=== PATIENT | female | born 1990 | race Caucasian/White ===

== ENCOUNTER 2017-01-18 18:23 | Emergency (ER) | payer OTHER ==
[~2017-01-18] VITALS: Ht 177.8 cm; Wt 104.3 kg
[~2017-01-18 18:23] MED LIST: FLAGYL500 MG PO; PHENERGAN 12.12.5 M1 PO; TESSALON PERLE100 MG PO; VIBRAMYCIN 100100 MG PO; VOLTAREN75 MG PO; ZANTAC 150150 MG PO
--- OUTSIDE RECORDS SUMMARY | 2017-01-18 18:29 | External Medical Summary Rpt ---
Author Author JOSE Michael, [employer] Organization [employer] Address Unknown Phone Unavailable
--- OUTSIDE RECORDS SUMMARY | 2017-01-18 18:29 | External Medical Summary Rpt | CCD ---
Demographics Preferred Language Azeri Marital Status Unknown Adventism Affiliation Unknown Race Unknown Ethnic Group Unknown Author Author JOSE Address Unknown Phone Immunization No patient found.
--- OUTSIDE RECORDS SUMMARY | 2017-01-18 18:29 | External Medical Summary Rpt | CCD ---
Author Author , JOSE GARCIA Address Unknown Phone [email or web address] Purpose Continuity of Care Document - 06-27-2016 through 2016 Problems Code Diagnosis DOS Provider Status N62 Hypertrophy of breast Results Labs Lab Lab Date Result Refere Interp Status Commen Order Detail nces retati t Range on CBC (hemogram) Bld Auto (06-27-2016 09:24) Platele 10-2 324 150-450 complet t # Bld 017 10*3/mm ed Auto 09:24 3 PMV Bld 05-10-2 9.8 fL 6.0-12. complet Auto 017 0 ed 09:24 RDW RBC 05-10-2 45.2 fl 37.0-54 complet Auto 017 .0 ed 09:24 RDW RBC 05-10-2 14.3 % 11.3-14 complet 017 .5 ed Auto-Rt 09:24 o MCHC -10-2 32.3 32.0-36 complet RBC 017 g/dL .0 ed Auto-mC 09:24 nc MCV RBC -10-2 86.1 fL 80.0-99 complet Auto 017 .0 ed 09:24 Hct VFr -10-2 40.9 % 34.5-44 complet Bld 017 .0 ed Auto 09:24 Hgb 05-10-2 13.2 11.5-15 complet Bld-mCn 017 g/dL .5 ed c 09:24 RBC # 05-10-2 4.75 3.89-5. complet Bld 017 10*6/mm 14 ed Auto 09:24 3 WBC 05-10-2 8.73 3.50-10 complet nRBC 017 10*3/mm .80 ed cor # 09:24 3 Bld MCH RBC 05-10-2 27.8 pg 27.0-31 complet Qn 017 .0 ed Auto 09:24
--- OUTSIDE RECORDS SUMMARY | 2017-01-18 18:29 | External Medical Summary Rpt | CCD ---
Author Author [employer] Organization [employer] Address Unknown Phone Unavailable Purpose Continuity of Care Document - through 2016
--- OUTSIDE RECORDS SUMMARY | 2017-01-18 18:29 | External Medical Summary Rpt | CCD ---
Demographics Preferred Language Bulgarian Marital Status Unknown Voodoo Affiliation Unknown Race Unknown Ethnic Group Unknown Author Author JOSE Address Unknown Phone Immunization No patient found.
--- OUTSIDE RECORDS SUMMARY | 2017-01-18 18:29 | External Medical Summary Rpt | CCD ---
Author Author , JOSE GARCIA Address Unknown Phone [email or web address] Purpose Continuity of Care Document - 06-27-2016 [...]
--- NOTE | 2017-01-18 19:22 | Urgent Treatment Center Report ---
History of Present Issue Date/Time Seen by Provider 01/18/17 1905 Visit Reason Pt arrived:Walked Presenting Problem:SORE THROAT, COUGH, CONGESTION X3 DAYS Location if Accident: Onset of symptoms date/time:/ or onset unknown for:MEDICAL HX UNKNOWN Have you (or family members/close friends) recently traveled outside the [place]? N If Yes, where/when: Have you had exposure to infectious disease within the past month? TB? Other? 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 at the high [employer] states that she has been exposed to Strep throat State that she feels like she is swallowing sharp objects as it makes her throat feel scratchy States that she came in this evening to get checked to make sure she didn't have strep throat ALLERGIES Coded Allergies: tramadol (From [employer]) (01/18/17) Home Medications Active Scripts Promethazine Hydrochloride (Phenergan 12.5MG Tab) 12.5 MG PO Q6H PRN #10 Prov: 05/03/07 BENZONATATE (Benzonatate) 100 MG PO TID 3 Days Prov: 01/01/08 Doxycycline Hyclate (Vibramycin 100MG Tab (Geq)) 100 MG PO BID 7 Days Prov: 01/01/08 Metronidazole (Flagyl) 500 MG PO Q8 5 Days Prov: 01/01/09 Diclofenac Sodium (Voltaren 75mg (GEQ)) 75 MG PO BID 5 Days Prov: 01/01/09 Ranitidine Hcl (Zantac) 150 MG PO BID 21 Days Prov: 06/20/09 History Medical History General CAD? No Angina: No [place]: No Hypertension? No Hyperlipidemia? No CHF? No DVT? No PE? No COPD? No Asthma? No Anemia? No GERD? No Gastric ulcers? No GI Bleed? No Hernia? No Thyroid Problems? No Hypothyroidism? No CVA? No Seizures? No Diabetes? No Renal Insuffiency? No UTI? No Stones? No BPH? No GB Disease: No Nephritic Syndrome? No Asplenia? No Hepatitis? No Sickle Cell Disease? No Arthritis? No Migraines? No Cataracts? No Glaucoma? No MRSA? No HIV? No TB? No Anxiety? No Depression? No Cancer? No Site: N More? No Immunization HX DT/Tetanus 1-4 YRS Surgical Hx Previous Surgery?Y CONTROL IMPLANT Social History Smoking Hx Smoker: Current Every Day Smoker Tobacco: Yes Type Cigarettes Packs/day < 1 Pack Alcohol Alcohol: No Review of Systems All Other Systems Reviewed and Negative Constitutional chills ENT nose congestion, throat pain. Respiratory cough Physical Exam Vital Signs Vital Signs Date Time Temp Pulse Resp B/P Pulse O2 O2 Flow FiO2 Ox Delivery Rate 01/18 1843 97.2 80 16 114/92 100 General Appearance normal appearance, WD/WN, no apparent distress Ear, Nose, Throat Throat red, raw irritated drainage noted in back of throat Respiratory Status Yes: trachea midline, chest symmetrical. No: respiratory distress. Lung Sounds bilateral: normal breath sounds, lungs clear. Cardiovascular normal exam, regular rate/rhythm, no peripheral edema Neurologic alert, normal exam, oriented x 3 Medical Decision Making LABS/Meds/Orders Pt receiving controlled substance in ED? No Results/Orders Laboratory Tests 01/18/171841: Group A Strep Screen NOT DETECTED Current Medication Orders Sig/Toña Start time Last Medication Dose Route Stop Time Status Admin Lidocaine HCl 0 .STK-MED ONE 01/18 1923 DC .ROUTE Methylprednisolone 0 .STK-MED ONE 01/18 1923 DC Sodium Succinate .ROUTE Ceftriaxone Sodium 0 .STK-MED ONE 01/18 1922 DC .ROUTE Ceftriaxone Sodium 1 GM ONCE ONE 01/18 1915 DC 01/18 IM 01/18 Lidocaine HCl 0 ONCE ONE 01/18 1915 DC 01/18 IM 01/18 Methylprednisolone 125 MG ONCE ONE 01/18 1915 DC 01/18 Sodium Succinate IM 01/18 Orders Procedure Date/time Status [facility] URINE 01/18 1911 Active [facility] STREP SCREEN 01/18 1842 Complete Departure Departure Time of Disposition 1928 Disposition DC Home or Self Care(routine) Clinical Impression Primary Impression: Upper respiratory infection Qualifiers: URI type: unspecified URI Qualified Code: J06.9 - Acute upper respiratory infection, unspecified Condition STABLE Referrals Reza Swanson MD (Family): 3 Days-Call Office if no improvement Patient Instructions Cough, DI for Nasal Congestion, Sore Throat Additional Instructions * Monitor Temp. Tylenol and/or Ibuprofen as needed. ER if fever is no less than 101 despite alternating Tylenol and Ibuprofen * Encourage fluids, water, Gatorade, powerade, pedialyte if infant/toddler/or child * Warm salt water gargles for throat irritation *Warm fluids *Sore throat lozenges *Sleep elevated *humidifier or vaporizer Lots of rest Increase fluids, water, Gatorade, powerade *Your throat swab was sent to lab for culture. Those results area typically sent to your primary care physician. Be sure to follow up in 2-3 days if no improvement so they can review those results and treat if necessary If you dont have primary care I recommend you get one, but in the mean time you will have to return to a walk in clinic Follow up IMMEDIATELY for new or worsening of symptoms OR no noticeable improvement over the next 48-72 hours. 911 immediately for any life threatening symptoms such as chest pain or difficulty breathing Discharge Counseling Counseled pt/family regarding diagnosis, test results, medications/RX, home care, follow up needs Prescriptions Current Visit Scripts PROMETHAZINE/DEXTROMETHORPHAN (Promethazine-Dm Syrup) 5 ML PO Q4HP PRN cough #150 S[facility] at 1931
--- NOTE | 2017-01-18 19:22 | Urgent Treatment Center Report ---
History of Present Issue Date/Time Seen by Provider 01/18/17 1905 Visit Reason Pt arrived:Walked Presenting Problem:SORE THROAT, COUGH, CONGESTION X3 DAYS Location if Accident: Onset of symptoms date/time:/ or onset unknown for:MEDICAL HX UNKNOWN Have you (or family members/close friends) recently traveled outside the [place]? N If Yes, where/when: Have you had exposure to infectious disease within the past month? TB? Other? 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 at the high [employer] states that she has been exposed to Strep throat State that she feels like she is swallowing sharp objects as it makes her throat feel scratchy States that she came in this evening to get checked to make sure she didn't have strep throat ALLERGIES Coded Allergies: tramadol (From [employer]) (01/18/17) Home Medications Active Scripts Promethazine Hydrochloride (Phenergan 12.5MG Tab) 12.5 MG PO Q6H PRN #10 Prov: 05/03/07 BENZONATATE (Benzonatate) 100 MG PO TID 3 Days Prov: 01/01/08 Doxycycline Hyclate (Vibramycin 100MG Tab (Geq)) 100 MG PO BID 7 Days Prov: 01/01/08 Metronidazole (Flagyl) 500 MG PO Q8 5 Days Prov: 01/01/09 Diclofenac Sodium (Voltaren 75mg (GEQ)) 75 MG PO BID 5 Days Prov: 01/01/09 Ranitidine Hcl (Zantac) 150 MG PO BID 21 Days Prov: 06/20/09 History Medical History General CAD? No Angina: No [place]: No Hypertension? No Hyperlipidemia? No CHF? No DVT? No PE? No COPD? No Asthma? No Anemia? No GERD? No Gastric ulcers? No GI Bleed? No Hernia? No Thyroid Problems? No Hypothyroidism? No CVA? No Seizures? No Diabetes? No Renal Insuffiency? No UTI? No Stones? No BPH? No GB Disease: No Nephritic Syndrome? No Asplenia? No Hepatitis? No Sickle Cell Disease? No Arthritis? No Migraines? No Cataracts? No Glaucoma? No MRSA? No HIV? No TB? No Anxiety? No Depression? No Cancer? No Site: N More? No Immunization HX DT/Tetanus 1-4 YRS Surgical Hx Previous Surgery?Y CONTROL IMPLANT Social History Smoking Hx Smoker: Current Every Day Smoker Tobacco: Yes Type Cigarettes Packs/day < 1 Pack Alcohol Alcohol: No Review of Systems All Other Systems Reviewed and Negative Constitutional chills ENT nose congestion, throat pain. Respiratory cough Physical Exam Vital Signs Vital Signs Date Time Temp Pulse Resp B/P Pulse O2 O2 Flow FiO2 Ox Delivery Rate 01/18 1843 97.2 80 16 114/92 100 General Appearance normal appearance, WD/WN, no apparent distress Ear, Nose, Throat Throat red, raw irritated drainage noted in back of throat Respiratory Status Yes: trachea midline, chest symmetrical. No: respiratory distress. Lung Sounds bilateral: normal breath sounds, lungs clear. Cardiovascular normal exam, regular rate/rhythm, no peripheral edema Neurologic alert, normal exam, oriented x 3 Medical Decision Making LABS/Meds/Orders Pt receiving controlled substance in ED? No Results/Orders Laboratory Tests 01/18/171841: Group A Strep Screen NOT DETECTED Current Medication Orders Sig/Toña Start time Last Medication Dose Route Stop Time Status Admin Lidocaine HCl 0 .STK-MED ONE 01/18 1923 DC .ROUTE Methylprednisolone 0 .STK-MED ONE 01/18 1923 DC Sodium Succinate .ROUTE Ceftriaxone Sodium 0 .STK-MED ONE 01/18 1922 DC .ROUTE Ceftriaxone Sodium 1 GM ONCE ONE 01/18 1915 DC 01/18 IM 01/18 Lidocaine HCl 0 ONCE ONE 01/18 1915 DC 01/18 IM 01/18 Methylprednisolone 125 MG ONCE ONE 01/18 1915 DC 01/18 Sodium Succinate IM 01/18 Orders Procedure Date/time Status [facility] URINE 01/18 1911 Active [facility] STREP SCREEN 01/18 1842 Complete Departure Departure Time of Disposition 1928 Disposition DC Home or Self Care(routine) Clinical Impression Primary Impression: Upper respiratory infection Qualifiers: URI type: unspecified URI Qualified Code: J06.9 - Acute upper respiratory infection, unspecified Condition STABLE Referrals Reza Swanson MD (Family): 3 Days-Call Office if no improvement Patient Instructions Cough, DI for Nasal Congestion, Sore Throat Additional Instructions * Monitor Temp. Tylenol and/or Ibuprofen as needed. ER if fever is no less than 101 despite alternating Tylenol and Ibuprofen * Encourage fluids, water, Gatorade, powerade, pedialyte if infant/toddler/or child * Warm salt water gargles for throat irritation *Warm fluids *Sore throat lozenges *Sleep elevated *humidifier or vaporizer Lots of rest Increase fluids, water, Gatorade, powerade *Your throat swab was sent to lab for culture. Those results area typically sent to your primary care physician. Be sure to follow up in 2-3 days if no improvement so they can review those results and treat if necessary If you dont have primary care I recommend you get one, but in the mean time you will have to return to a walk in clinic Follow up IMMEDIATELY for new or worsening of symptoms OR no noticeable improvement over the next 48-72 hours. 911 immediately for any life threatening symptoms such as chest pain or difficulty breathing Discharge Counseling Counseled pt/family regarding diagnosis, test results, medications/RX, home care, follow up needs Prescriptions Current Visit Scripts PROMETHAZINE/DEXTROMETHORPHAN (Promethazine-Dm Syrup) 5 ML PO Q4HP PRN cough #150 [facility] at 1931
[2017-01-18] MEDS ORDERED: PROMETHAZINE D118 ML PO (19:31)
[2017-01-18 19:32] VITALS: BP 114/92
== END 2017-01-18 19:33 | disposition home or self-care (01) ==
LOC: UTC 18:23
DX: J06.9 Acute upper respiratory infection, unspecified (principal); F17.210 Nicotine dependence, cigarettes, uncomplicated; Z88.6 Allergy status to analgesic agent